=== PATIENT | male | born 1990 | race Hispanic/Latino ===

== ENCOUNTER 2020-06-24 11:46 | Emergency (ER) | payer SELFPAY ==
[~2020-06-24] VITALS: Ht 175.3 cm; Wt 59.0 kg
[2020-06-24] MEDS ORDERED: FLUORESCEIN SOD(OPTH) 1 MG STRP ONE (12:11)
[2020-06-24] MEDS ORDERED: TETRACAINE HCL 0.5% OPTH SOLN 4 ML BTL ONE (12:11)
[2020-06-24] MEDS ORDERED: FLUORESCEIN SOD(OPTH) 1 MG STRP OP ONE (12:15)
[2020-06-24] MEDS ORDERED: TETRACAINE HCL 0.5% OPTH SOLN 4 ML BTL OP ONE (12:15)
== END 2020-06-24 12:30 | disposition home or self-care (01) ==
LOC: ER 12:01
DX: H57.12 Ocular pain, left eye (principal); S05.02XA Injury of conjunctiva and corneal abrasion without foreign body, left eye, initial encounter; Y93.55 Activity, bike riding
CPT/HCPCS: 99283

== ENCOUNTER 2020-11-12 10:52 | Emergency (ER) | payer OTHER ==
[~2020-11-12] VITALS: Ht 175.3 cm; Wt 59.0 kg
[2020-11-12] MEDS ORDERED: KETOROLAC TROMETHAMINE 30 MG/ML VIAL IM NR (11:15)
[2020-11-12] MEDS ORDERED: ACETAMINOPHEN 325 MG TAB PO NR (11:15)
== END 2020-11-12 13:01 | disposition home or self-care (01) ==
LOC: ER 11:08
DX: M25.562 Pain in left knee (principal); S82.832D Other fracture of upper and lower end of left fibula, subsequent encounter for closed fracture with routine healing; V03.90XD Pedestrian on foot injured in collision with car, pick-up truck or van, unspecified whether traffic or nontraffic accident, subsequent encounter
CPT/HCPCS: 73562; 73590; 73610; 73630; 99283; J1885